=== PATIENT | male | born 1975 | race Caucasian/White ===

== ENCOUNTER 2022-12-15 20:56 | Emergency (ER) | payer BC, MEDICAID, SELFPAY ==
[2022-12-15] VITALS (7 sets, daily range): BP systolic 143–231; BP diastolic 82–128; PULSE 64–76; RESP 18–24; TEMP 36.7; O2SAT 94–98; BMI 41.2
--- NOTE | 2022-12-15 21:25 | CTR_ITS ---
PROCEDURE INFORMATION: Exam: CT Abdomen And Pelvis With Contrast Exam date and time: 12/15/2022 9:53 PM Age: 47 years old Clinical indication: Abdominal pain; Localized; Right; Patient HX: C/O RT sided abd pain. Diaphoretic. ; Additional info: Abdominal pain right flank TECHNIQUE: Imaging protocol: Computed tomography of the abdomen and pelvis with contrast. Radiation optimization: All CT scans at this facility use at least one of these dose optimization techniques: automated exposure control; mA and/or kV adjustment per patient size (includes targeted exams where dose is matched to clinical indication); or iterative reconstruction. Contrast material: OMNI 350; Contrast volume: 100 ml; Contrast route: INTRAVENOUS (IV); REPORTING DATA: Count of CT and Cardiac NM exams in prior 12 months: This patient has received 0 known CTs and 0 known cardiac nuclear medicine studies in the 12 months prior to the current study. COMPARISON: CT kidney stone [id number] 11/10/2017 4:25 PM RADIATION DOSE METRICS: Total DLP (mGy-cm): 1349.33 FINDINGS: Liver: Normal. No mass. Gallbladder and bile ducts: Normal. No calcified stones. No ductal dilation. Pancreas: Normal. No ductal dilation. Spleen: Normal. No splenomegaly. Adrenal glands: Normal. No mass. Kidneys and ureters: Mild severity right collecting system hydroureteronephrosis. Slight right periureteric fat stranding proximally. Linear calcified stone within the right ureterovesical junction measures 5 mm longitudinal by 2 mm transverse. Stomach and bowel: Unremarkable. No obstruction. No mucosal thickening. Appendix: No evidence of appendicitis. Intraperitoneal space: Unremarkable. No free air. No significant fluid collection. Vasculature: Unremarkable. No abdominal aortic aneurysm. Lymph nodes: Unremarkable. No enlarged lymph nodes. Urinary bladder: Unremarkable as visualized. Reproductive: Unremarkable as visualized. Bones/joints: Unremarkable. No acute fracture. Soft tissues: Unremarkable. CT/CT abdomen pelvis w con* [id number] IMPRESSION: Right renal obstructive uropathy secondary to right UVJ stone.
--- NOTE | 2022-12-15 21:28 | ECG_ITS ---
[facility] Test Date: 2022-12-15 Pat Name: Carlos Quesada Department: Room: Gender: Male [employer] Inter[employer]ary: : 1975 Requested By: Josemanuel Diaz Order Number: [id number] Dm MD: Surekha Castrejon M.D. Measurements Intervals [place] Rate: 67 P: 52 ME: 173 QRS: -16 QRSD: 107 T: 5 QT: 418 QTc: 442 Interpretive Statements SINUS RHYTHM Compared to ECG 11/20/2016 18:50:52 Sinus bradycardia no longer present Left-axis deviation no longer present Electronically Signed On 12-16-2022 16:37:05 CDT by Surekha Castrejon M.D. [id number]
[2022-12-15] MEDS: morphine 4 mg/mL SDV 1 mL IVP (21:42)
[2022-12-15] MEDS: sodium chloride 0.9% 1,000 ML 999 ML IV (21:43)
[2022-12-15] MEDS: ketorolac 30 mg/mL INJ IVP (21:43)
[2022-12-15] MEDS: ondansetron 2 mg/ML SDV 2 mL 4 MG IVP (21:43)
[2022-12-15 21:46] LABS: Basophils % 0.2 %; Eosinophils # 0.2 10^3/uL (0.0-0.8); Eosinophils % 2.7 %; Hematocrit 46.4 % (42.0-52.0); Lymphocytes # 2.5 10^3/uL (0.8-4.8); Lymphocytes % 29.7 %; Mean Corpuscular HGB Conc 32.3 g/dL (30.0-36.0); Mean Corpuscular Hemoglobin 28.5 pg (28.0-34.0); Mean Corpuscular Volume 88.2 fl (80-94); Mean Platelet Volume 10.4 fL (7.4-10.4); Monocytes # 0.8 10^3/uL (0.2-0.9); Monocytes % 9.2 %; Neutrophils # 4.81 10^3/uL (1.8-7.7); Nucleated Red Blood Cells % 0 %; Platelet Count 323 10^3/cmm (130-400); Red Blood Count 5.26 10^6/uL (4.1-5.3); Red Cell Distribution Width 11.9 % (12.1-15.1); White Blood Count 8.3 10^3/uL (4.0-10.0)
[2022-12-15] MEDS: iohexol 350 mg/mL 500 mL Btl (per mL) IV (21:56)
[2022-12-15 21:57] LABS: Lactate (Lactic Acid level) 1.7 mmol/L (0.5-2.2)
[2022-12-15 22:00] LABS: Troponin(5th) Baseline 6 ng/L (0-15)
[2022-12-15 22:08] LABS: Alanine Aminotransferase 37 U/L (0-41); Albumin Level 4.4 g/dL (3.5-5.2); Alkaline Phosphatase 85 U/L (40-130); Aspartate Amino Transferase 27 U/L (0-40); Blood Urea Nitrogen 12 mg/dL (6-20); Calcium 8.9 mg/dL (8.5-10.5); Carbon Dioxide 27 mmol/L (22-29); Chloride 104 mmol/L (98-107); Globulin 2.8 g/dL (1.3-4.6); Glomerular Filtration Rate 80.4 mL/min (90-130); Glucose 128 mg/dL (65-115); Lipase 26 U/L (13-60); NT Pro B Type Natriuretic Pept 36 pg/mL (0-125); Osmolality Calculated 295 mOsm/kg (285-295); Sodium 142 mmol/L (136-145); Total Bilirubin 0.7 mg/dL (0.15-1.2); Total Protein 7.2 g/dL (6.6-8.7)
[2022-12-15 22:55] LABS: Troponin 5 2HR 7.48 ng/L (0-15)
--- NOTE | 2022-12-15 23:03 | ED_ITS ---
Documented by User: Josemanuel Diaz 12/15/22 23:07 HPI - Back Pain/Injury General: Chief Complaint: Back Pain/Injury Stated Complaint: back pain,n/v Time Seen by Provider: 12/15/22 21:14 History of Present Illness: 47-year-old male presents emergency department chief complaint of having sudden severe right-sided flank pain that started about an hour prior to arrival patient does recall taking 1 methadone tablet for pain that does not seem to help improve his pain patient does recall having a prior history of chronic neck problems he also endorsed having a prior history of kidney stones. Patient reports yesterday he developed nausea vomiting diarrhea prior to the symptoms developing patient reports significant right-sided flank pain he does not recall any prior history of lower back problems. Patient does not endorse any urinary frequency or blood in his urine patient presents to the ER for further assessment and management. Associated symptoms: Reports abdominal pain, nausea and vomiting; Deny chills, fatigue or fever(s) Review of Systems General: Reports: 10 or more systems reviewed and unremarkable except in HPI and below Const: Denies: fever(s), chills, fatigue or malaise Eyes: Denies: change in vision or blurry vision Card: Denies: chest pain or palpitations Resp: Denies: dyspnea or productive cough GI: Reports: abdominal pain, nausea and vomiting : Reports: flank pain and urinary frequency Musc: Denies: extremity pain or extremity swelling Skin/Breast: Denies: rash or pruritus Neuro: Denies: headache(s) Psych: Denies: anxiety or depression Stan/Lymph: Denies: easy bleeding All/Imm: Denies: urticaria, throat swelling or facial swelling Physical Exam Const: COMMON NORMALS: patient oriented x3 and healthy appearing; apparent distress (Patient appears in severe distress due to pain diaphoretic on exam) HENMT: COMMON NORMALS: normocephalic and atraumatic HEAD & SCALP: normocephalic and atraumatic Eye: COMMON NORMALS: Equal, round and reactive pupils present and EOMs intact bilaterally PUPIL: Yes Equal, round and reactive pupils present Neck/C-Spine: COMMON NORMALS: full ROM, supple and no JVD Lymph: LYMPHATIC: no lymphadenopathy noted Chest: COMMONS NORMALS: normal inspection of the chest and normal palpation of entire chest wall Resp: COMMON NORMALS: normal respiratory effort, No retractions and clear to auscultation bilaterally EFFORT & INSPECTION: Yes able to speak in complete sentences and Yes symmetric chest movement AUSCULTATION: clear to auscultation bilaterally Cardio: COMMON NORMALS: no JVD and regular rhythm; negative for regular rate (Tachycardic on exam) RATE: abnormal rate (Tachycardic on exam) RHYTHM: regular rhythm GI: COMMON NORMALS: Normal to inspection, nondistended, normoactive bowel sounds present, Soft to palpation and non-tender INSPECTION: Yes normal to inspection PALPATION: Yes Soft to palpation : OTHER: Significant right-sided pain noted to the right lateral flank with radiation to the right lower quadrant. Otherwise soft nontender patient does have some blanching hives appreciated to his anterior abdominal wall Extremity: COMMON NORMALS: normal to inspection and full ROM Neuro: COMMON NORMALS: patient oriented x3, CN's II-XII intact bilaterally, moves all extremities and no focal motor deficits Psych: COMMON NORMALS: mental status grossly normal, Normal thought process present, cooperative and normal affect THOUGHT PROCESS: Normal thought process present Skin: COMMON NORMALS: no rashes or lesions noted GENERAL SKIN EXAM: no rashes or lesions noted Course Vital Signs: Vital signs: Vital Signs Temperature 98.1 F 12/15/22 21:04 Pulse Rate 72 12/15/22 23:55 Respiratory Rate 20 H 12/15/22 23:55 Blood Pressure 148/85 12/15/22 23:55 Pulse Oximetry 97 12/15/22 23:55 Oxygen Delivery Me thod Room Air 12/15/22 23:25 MDM - Back Pain/Injury Medical Decision Making Due to the patient's symptoms and condition lab work imaging will be obtained we will continue to follow patient was provided Toradol and morphine for his pain control currently waiting urinalysis to be obtained. Patient was found to have a kidney stone located at the UVJ. We will continue to follow anticipate discharge home pending urinalysis. Labs 12/15/22 21:10 12/15/22 21:10 Radiology Impressions Abdomen/Pelvis CT 12/15/22 21:25 IMPRESSION: Right renal obstructive uropathy secondary to right UVJ stone. Laboratory Results WBC 8.3 10^3/uL (4.0-10.0) 12/15/22 21:10 RBC 5.26 10^6/uL (4.1-5.3) 12/15/22 21:10 Hgb 15.0 g/dL (11.7-16.6) 12/15/22 21:10 Hct 46.4 % (42.0-52.0) 12/15/22 21:10 MCV 88.2 fl (80-94) 12/15/22 21:10 MCH 28.5 pg (28.0-34.0) 12/15/22 21:10 MCHC 32.3 g/dL (30.0-36.0) 12/15/22 21:10 RDW 11.9 % (12.1-15.1) L 12/15/22 21:10 Plt Count 323 10^3/cmm (130-400) 12/15/22 21:10 MPV 10.4 fL (7.4-10.4) 12/15/22 21:10 Neut % (Auto) 58.0 % 12/15/22 21:10 Lymph % (Auto) 29.7 % 12/15/22 21:10 [place] % (Auto) 9.2 % 12/15/22 21:10 Eos % (Auto) 2.7 % 12/15/22 21:10 Baso % (Auto) 0.2 % 12/15/22 21:10 Neut # (Auto) 4.81 10^3/uL (1.8-7.7) 12/15/22 21:10 Lymph # (Auto) 2.5 10^3/uL (0.8-4.8) 12/15/22 21:10 [place] # (Auto) 0.8 10^3/uL (0.2-0.9) 12/15/22 21:10 Eos # (Auto) 0.2 10^3/uL (0.0-0.8) 12/15/22 21:10 Baso # (Auto) 0.0 10^3/uL (0.0-0.1) 12/15/22 21:10 Nucleated RBC % (auto) 0 % 12/15/22 21:10 Nucleated RBCs # 0.0 /100WBC 12/15/22 21:10 Sodium 142 mmol/L (136-145) 12/15/22 21:10 Potassium 4.0 mmol/L (3.5-5.1) 12/15/22 21:10 Chloride 104 mmol/L (98-107) 12/15/22 21:10 Carbon Dioxide 27 mmol/L (22-29) 12/15/22 21:10 Anion Gap 15.0 (5-19) 12/15/22 21:10 BUN 12 mg/dL (6-20) 12/15/22 21:10 Creatinine 1.0 mg/dL (0.7-1.2) 12/15/22 21:10 GFR Calculation 80.4 mL/min (90-130) L 12/15/22 21:10 Glucose 128 mg/dL (65-115) H 12/15/22 21:10 Calculated Osmolality 295 mOsm/kg (285-295) 12/15/22 21:10 Lactate 1.7 mmol/L (0.5-2.2) 12/15/22 21:10 Calcium 8.9 mg/dL (8.5-10.5) 12/15/22 21:10 Total Bilirubin 0.7 mg/dL (0.15-1.2) 12/15/22 21:10 AST 27 U/L (0-40) 12/15/22 21:10 ALT 37 U/L (0-41) 12/15/22 21:10 Alkaline Phosphatase 85 U/L (40-130) 12/15/22 21:10 Troponin T Baseline 6 ng/L (0-15) 12/15/22 21:10 Troponin T 120 Minute 7.48 ng/L (0-15) 12/15/22 22:35 Delta Troponin T 1.48 ABS# (0-10) 12/15/22 22:35 C-Reactive Protein 19.0 mg/L (0.0-4.9) H 12/15/22 21:10 NT-Pro-B Natriuret Pep 36 pg/mL (0-125) 12/15/22 21:10 Total Protein 7.2 g/dL (6.6-8.7) 12/15/22 21:10 Albumin 4.4 g/dL (3.5-5.2) 12/15/22 21:10 Globulin 2.8 g/dL (1.3-4.6) 12/15/22 21:10 Lipase 26 U/L (13-60) 12/15/22 21:10 Urine Color Light yellow (Yellow) 12/15/22 23:39 Urine Appearance Clear (CLEAR) 12/15/22 23:39 Urine pH 5 (5-7) 12/15/22 23:39 Ur Specific [place] 1.010 (1.005-1.030) 12/15/22 23:39 Urine Protein Trace (Negative) 12/15/22 23:39 Urine Glucose (UA) Norm (Normal) 12/15/22 23:39 Urine Ketones Negative (Negative) 12/15/22 23:39 Urine Blood 3+ (Negative) H 12/15/22 23:39 Urine Nitrate Negative (Negative) 12/15/22 23:39 Urine Bilirubin Neg (Negative) 12/15/22 23:39 Urine Urobilinogen Norm mg/dL (Negative) 12/15/22 23:39 Ur Leukocyte Esterase Negative (Negative) 12/15/22 23:39 Urine RBC 50-80 /hpf (0-2) H 12/15/22 23:39 Urine WBC 0-4 /hpf (0-5) H 12/15/22 23:39 Ur Squamous Epith Cells 0-4 /hpf (0-5) H 12/15/22 23:39 Amorphous Sediment Not Reportable 12/15/22 23:39 Urine Bacteria None /hpf (NONE) 12/15/22 23:39 Urine Mucus 2+ /hpf 12/15/22 23:39 Urine Opiates Screen Positive ng/mL (Negative) H 12/15/22 23:39 Ur Barbiturates Screen Negative ng/mL (Negative) 12/15/22 23:39 Ur Phencyclidine Scrn Negative ng/mL (Negative) 12/15/22 23:39 Ur Amphetamines Screen Negative ng/mL (Negative) 12/15/22 23:39 U Benzodiazepines Scrn Negative ng/mL (Negative) 12/15/22 23:39 Urine Cocaine Screen Negative ng/mL (Negative) 12/15/22 23:39 U Marijuana (THC) Screen Positive ng/mL (Negative) H 12/15/22 23:39 Discharge Plan Discharge Patient Disposition: Home Clinical Impression: Renal colic, Kidney stone on right side Condition: Stable Prescriptions: New ketorolac 10 mg tablet 10 mg PO Q8H PRN (Reason: pain) Qty: 10 0RF Flomax 0.4 mg capsule 0.4 mg PO DAILY Qty: 7 0RF ondansetron 4 mg tablet,disintegrating 4 mg PO Q8H 5 Days Qty: 15 0RF Discharge Orders: Discharge ED (Routine); Ordered 12/16/22 Ordered By: Deborah Obrien Referrals: Carlos Moya DO [Primary Care Provider] - 4-7 days Discharge Diet: Advance as tolerated Discharge Activity: Resume usual activity Patient Instructions: Kidney Stones (ED), Renal Colic (ED), How to Strain Your Urine (ED), Abdominal Pain (ED) Activity Restrictions/Additional Instructions: Please further follow-up with your primary care doctor in 3 to 5 days take medication as prescribed please drink lots of water please return the interim if any of your symptoms persist or worse. 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 [employer] Documented by User: ARGENTINA Liao 12/16/22 00:22 HPI - Back Pain/Injury General: Chief Complaint: Back Pain/Injury Stated Complaint: back pain,n/v Time Seen by Provider: 12/15/22 21:14 Course Vital Signs: Vital signs: Vital Signs Temperature 98.1 F 12/15/22 21:04 Pulse Rate 72 12/15/22 23:55 Respiratory Rate 20 H 12/15/22 23:55 Blood Pressure 148/85 12/15/22 23:55 Pulse Oximetry 97 12/15/22 23:55 Oxygen Delivery Me thod Room Air 12/15/22 23:25 MDM - Back Pain/Injury Medical Decision Making Due to the patient's symptoms and condition lab work imaging will be obtained we will continue to follow patient was provided Toradol and morphine for his pain control currently waiting urinalysis to be obtained. Patient was found to have a kidney stone located at the UVJ. We will continue to follow anticipate discharge home pending urinalysis. Deborah Obrien PA-C: Received handoff from Dr. Diaz at 2300. He indicated that urinalysis was still pending and he was concerned for infection given the patient's recent ureteral stone. He indicated that if patient showed signs of urinary infection he would recommend starting antibiotics. Otherwise, patient had medication for pain and Flomax for the next several days. Patient urinalysis showed no signs of nitrates or bacteria. Discussed with the patient negative findings on his urinalysis. Explained to him that the doctor had already prescribed medications for him to take for the next few days as he may still continue to have generalized urinary discomfort secondary to passing a kidney stone. Differential Diagnosis Likely lumbar radiculopathy, strain of lumbar region, renal colic and pyelonephritis Labs 12/15/22 21:10 12/15/22 21:10 Radiology Impressions Abdomen/Pelvis CT 12/15/22 21:25 IMPRESSION: Right renal obstructive uropathy secondary to right UVJ stone. Laboratory Results WBC 8.3 10^3/uL (4.0-10.0) 12/15/22 21:10 RBC 5.26 10^6/uL (4.1-5.3) 12/15/22 21:10 Hgb 15.0 g/dL (11.7-16.6) 12/15/22 21:10 Hct 46.4 % (42.0-52.0) 12/15/22 21:10 MCV 88.2 fl (80-94) 12/15/22 21:10 MCH 28.5 pg (28.0-34.0) 12/15/22 21:10 MCHC 32.3 g/dL (30.0-36.0) 12/15/22 21:10 RDW 11.9 % (12.1-15.1) L 12/15/22 21:10 Plt Count 323 10^3/cmm (130-400) 12/15/22 21:10 MPV 10.4 fL (7.4-10.4) 12/15/22 21:10 Neut % (Auto) 58.0 % 12/15/22 21:10 Lymph % (Auto) 29.7 % 12/15/22 21:10 [place] % (Auto) 9.2 % 12/15/22 21:10 Eos % (Auto) 2.7 % 12/15/22 21:10 Baso % (Auto) 0.2 % 12/15/22 21:10 Neut # (Auto) 4.81 10^3/uL (1.8-7.7) 12/15/22 21:10 Lymph # (Auto) 2.5 10^3/uL (0.8-4.8) 12/15/22 21:10 [place] # (Auto) 0.8 10^3/uL (0.2-0.9) 12/15/22 21:10 Eos # (Auto) 0.2 10^3/uL (0.0-0.8) 12/15/22 21:10 Baso # (Auto) 0.0 10^3/uL (0.0-0.1) 12/15/22 21:10 Nucleated RBC % (auto) 0 % 12/15/22 21:10 Nucleated RBCs # 0.0 /100WBC 12/15/22 21:10 Sodium 142 mmol/L (136-145) 12/15/22 21:10 Potassium 4.0 mmol/L (3.5-5.1) 12/15/22 21:10 Chloride 104 mmol/L (98-107) 12/15/22 21:10 Carbon Dioxide 27 mmol/L (22-29) 12/15/22 21:10 Anion Gap 15.0 (5-19) 12/15/22 21:10 BUN 12 mg/dL (6-20) 12/15/22 21:10 Creatinine 1.0 mg/dL (0.7-1.2) 12/15/22 21:10 GFR Calculation 80.4 mL/min (90-130) L 12/15/22 21:10 Glucose 128 mg/dL (65-115) H 12/15/22 21:10 Calculated Osmolality 295 mOsm/kg (285-295) 12/15/22 21:10 Lactate 1.7 mmol/L (0.5-2.2) 12/15/22 21:10 Calcium 8.9 mg/dL (8.5-10.5) 12/15/22 21:10 Total Bilirubin 0.7 mg/dL (0.15-1.2) 12/15/22 21:10 AST 27 U/L (0-40) 12/15/22 21:10 ALT 37 U/L (0-41) 12/15/22 21:10 Alkaline Phosphatase 85 U/L (40-130) 12/15/22 21:10 Troponin T Baseline 6 ng/L (0-15) 12/15/22 21:10 Troponin T 120 Minute 7.48 ng/L (0-15) 12/15/22 22:35 Delta Troponin T 1.48 ABS# (0-10) 12/15/22 22:35 C-Reactive Protein 19.0 mg/L (0.0-4.9) H 12/15/22 21:10 NT-Pro-B Natriuret Pep 36 pg/mL (0-125) 12/15/22 21:10 Total Protein 7.2 g/dL (6.6-8.7) 12/15/22 21:10 Albumin 4.4 g/dL (3.5-5.2) 12/15/22 21:10 Globulin 2.8 g/dL (1.3-4.6) 12/15/22 21:10 Lipase 26 U/L (13-60) 12/15/22 21:10 Urine Color Light yellow (Yellow) 12/15/22 23:39 Urine Appearance Clear (CLEAR) 12/15/22 23:39 Urine pH 5 (5-7) 12/15/22 23:39 Ur Specific [place] 1.010 (1.005-1.030) 12/15/22 23:39 Urine Protein Trace (Negative) 12/15/22 23:39 Urine Glucose (UA) Norm (Normal) 12/15/22 23:39 Urine Ketones Negative (Negative) 12/15/22 23:39 Urine Blood 3+ (Negative) H 12/15/22 23:39 Urine Nitrate Negative (Negative) 12/15/22 23:39 Urine Bilirubin Neg (Negative) 12/15/22 23:39 Urine Urobilinogen Norm mg/dL (Negative) 12/15/22 23:39 Ur Leukocyte Esterase Negative (Negative) 12/15/22 23:39 Urine RBC 50-80 /hpf (0-2) H 12/15/22 23:39 Urine WBC 0-4 /hpf (0-5) H 12/15/22 23:39 Ur Squamous Epith Cells 0-4 /hpf (0-5) H 12/15/22 23:39 Amorphous Sediment Not Reportable 12/15/22 23:39 Urine Bacteria None /hpf (NONE) 12/15/22 23:39 Urine Mucus 2+ /hpf 12/15/22 23:39 Urine Opiates Screen Positive ng/mL (Negative) H 12/15/22 23:39 Ur Barbiturates Screen Negative ng/mL (Negative) 12/15/22 23:39 Ur Phencyclidine Scrn Negative ng/mL (Negative) 12/15/22 23:39 Ur Amphetamines Screen Negative ng/mL (Negative) 12/15/22 23:39 U Benzodiazepines Scrn Negative ng/mL (Negative) 12/15/22 23:39 Urine Cocaine Screen Negative ng/mL (Negative) 12/15/22 23:39 U Marijuana (THC) Screen Positive ng/mL (Negative) H 12/15/22 23:39 Discharge Plan Discharge Patient Disposition: Home Clinical Impression: Renal colic, Kidney stone on right side Condition: Stable Prescriptions: New ketorolac 10 mg tablet 10 mg PO Q8H PRN (Reason: pain) Qty: 10 0RF Flomax 0.4 mg capsule 0.4 mg PO DAILY Qty: 7 0RF ondansetron 4 mg tablet,disintegrating 4 mg PO Q8H 5 Days Qty: 15 0RF Discharge Orders: Discharge ED (Routine); Ordered 12/16/22 Ordered By: Deborah Obrien Referrals: Carlos Moya DO [Primary Care Provider] - 4-7 days Discharge Diet: Advance as tolerated Discharge Activity: Resume usual activity Patient Instructions: Kidney Stones (ED), Renal Colic (ED), How to Strain Your Urine (ED), Abdominal Pain (ED) Activity Restrictions/Additional Instructions: Please further follow-up with your primary care doctor in 3 to 5 days take medication as prescribed please drink lots of water please return the interim if any of your symptoms persist or worse. 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
--- NOTE | 2022-12-15 23:28 | ECG_ITS ---
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 Measurements Intervals [place] Rate: 65 P: 49 MA: 171 QRS: -24 QRSD: 105 T: 31 QT: 407 QTc: 423 Interpretive Statements SINUS RHYTHM BORDERLINE LEFT AXIS DEVIATION [QRS AXIS < -20] Compared to ECG 11/20/2016 18:50:52 Sinus bradycardia no longer present Electronically Signed On 12-16-2022 16:58:38 CDT by Surekha Castrejon M.D. [id number]
[2022-12-15 23:41] LABS: Troponin 5 2HR Delta 1.48 ABS# (0-10)
[2022-12-16 00:05] LABS: Blood Urine 3+ (Negative); Glucose Urine UA Norm (Normal); Ketones Urine Negative (Negative); Protein Urine Trace (Negative); Urine Appearance Clear (CLEAR); Urine Color Light yellow (Yellow); pH Urine 5 (5-7)
[2022-12-16 00:06] LABS: Add Urine Culture? No; Add Urine Microscopic? YES; Bilirubin Urine Neg (Negative); Leukocyte Esterase Urine Negative (Negative); Mucus Urine 2+ /hpf; Nitrate Urine Negative (Negative); RBC Urine 50-80 /hpf (0-2); Squamous Epithelial Cell Urine 0-4 /hpf (0-5); Urobilinogen Urine Norm (Negative); WBC Urine 0-4 /hpf (0-5)
[2022-12-16 00:07] LABS: Amphetamines Screen Urine Negative (Negative); Barbiturates Screen Urine Negative (Negative); Benzodiazepines Screen Urine Negative (Negative); Cocaine Screen Urine Negative (Negative); Opiate Screen Urine Positive (Negative); PCP Screen Urine Negative (Negative); THC Screen Urine Positive (Negative)
[2022-12-16 00:13] VITALS: BP 141/72; PULSE 76; RESP 16; O2SAT 97
== END 2022-12-16 00:20 | disposition home or self-care (01) ==
PROVIDERS: Emergency Medicine; Emergency Provider Physician Assistant; PCP Family Medicine
DX: N13.5 Crossing vessel and stricture of ureter without hydronephrosis (principal)
CPT/HCPCS: 74177; 80053; 80306; 81001; 81003; 83605; 83690; 83880; 84484; 85025; 86140; 93005; 96361; 96374; 96375; 99285; J1885; J2270; J2405; J7030; Q9967